=== PATIENT | female | born 1985 | race Caucasian/White ===

== ENCOUNTER 2017-05-16 18:52 | Emergency (ER) | payer OTHER ==
[2017-05-16] MEDS ORDERED: Sodium Chloride 0.9% 10 ML Syringe FLUSH PRN (19:14)
[2017-05-16] MEDS ORDERED: Ondansetron 4 MG/2 ML SDV IVPUSH ONE ×2 (19:14→19:57)
[2017-05-16] MEDS ORDERED: Sodium Chloride 0.9% 1,000 ML IV ONE (19:14)
[2017-05-16] MEDS ORDERED: HYDROmorphone 0.5 MG/0.5 ML SYRINGE IVPUSH ONE ×2 (19:24→20:08)
--- NOTE | 2017-05-16 19:37 | EDM.PDOC ---
ED HPI GENERAL MEDICAL PROBLEM - General Stated Complaint: VOMITING ABDOMINAL PAIN Time Seen by Provider: 05/16/17 19:15 Source of Information: Reports: Patient History Limitations: Reports: No Limitations - History of Present Illness INITIAL COMMENTS - FREE TEXT/NARRATIVE: Patient is a 31-year-old female presents ED complaining of vomiting and diarrhea since Saturday with diffuse abdominal pain that is worse on left hand side. Patient has been unable to keep anything down. She's had multiple episodes of diarrhea and emesis. She states in total she has 3 episodes a day of each. She has diffuse abdominal discomfort worse on the left side. Pain is described as a pressure with sharp intermittent episodes of waxing and waning. Nausea vomiting increases with food intake. She has been able to keep some liquids down. There's been no recent sick exposures. No blood in her stool or emesis. She denies any fever, sinus congestion, runny nose, sore throat, or chest pain. She's had some mild body aches. No pain with urination. She has a history of overactive bladder. She is on Ambien, sertraline, and Symbicort. Left Abdomen Pain Score (Numeric/FACES): 7 - Related Data Allergies Allergy/AdvReac Type Severity Reaction Status Date / Time No Known Allergies Allergy Verified 02/11/14 17:10 Home Meds: Home Meds Budesonide/Formoterol Fumarate [Symbicort 160-4.5 Mcg Inhaler] 1 puff IH DAILY 05/16/17 [History] Sertraline [Zoloft] 100 mg PO DAILY 05/16/17 [History] Solifenacin [Vesicare] 5 mg PO DAILY 05/16/17 [History] Zolpidem [Ambien] 10 mg PO BEDTIME PRN 05/16/17 [History] Past Medical History HEENT History: Reports: Impaired Vision Respiratory History: Reports: Asthma Psychiatric History: Reports: Anxiety - Past Surgical History Female Surgical History: Reports: Hysterectomy, Tubal Ligation, Other (See Below) Other Female Surgeries/Procedures: bladder sling Social & Family History - Tobacco Use Smoking Status *Q: Current Every Day Smoker Years of Tobacco use: 17 Packs/Tins Daily: 1 Used Tobacco, but Quit: No Second Hand Smoke Exposure: No - Caffeine Use Caffeine Use: Reports: Coffee - Alcohol Use Days Per Week of Alcohol Use: 0 Number of Drinks Per Day: 0 Total Drinks Per Week: 0 - Recreational Drug Use Recreational Drug Use: No Drug Use in Last 12 Months: No ED ROS GENERAL - Review of Systems Review Of Systems: See Below Constitutional: Reports: Chills, Malaise, Weakness, Decreased Appetite. Denies : Fever HEENT: Reports: No Symptoms Respiratory: Reports: No Symptoms Cardiovascular: Reports: No Symptoms GI/Abdominal: Reports: Abdominal Pain (Epigastric and along the umbilicus: Moderate to severe), Diarrhea (3 episodes a day no blood present), Decreased Appetite (3 episodes today with no blood present), Nausea, Vomiting : Reports: No Symptoms Musculoskeletal: Reports: Muscle Pain (Generalized) Skin: Reports: No Symptoms Neurological: Reports: Dizziness Psychiatric: Reports: No Symptoms ED EXAM, GI/ABD - Physical Exam Exam: See Below Exam Limited By: No Limitations General Appearance: Alert, WD/WN, Mild Distress Ears: Hearing Grossly Normal Nose: Normal Inspection Throat/Mouth: Normal Inspection, Normal Oropharynx, Normal Voice, No Airway Compromise Head: Atraumatic, Normocephalic Neck: Normal Inspection, Supple, Non-Tender, Full Range of Motion Respiratory/Chest: No Respiratory Distress, Lungs Clear, Normal Breath Sounds, No Accessory Muscle Use, Chest Non-Tender Cardiovascular: Normal Peripheral Pulses, Regular Rate, Rhythm, No Murmur GI/Abdominal Exam: Normal Bowel Sounds, Soft, No Organomegaly, No Distention, Tender (Lungs epigastric and periumbilical area) Back Exam: Normal Inspection. No: CVA Tenderness (L), CVA Tenderness (R) Extremities: Normal Inspection, Non-Tender, No Pedal Edema, Normal Capillary Refill Neurological: Alert, Oriented, CN II-XII Intact, Normal Cognition, No Motor/ Sensory Deficits Psychiatric: Normal Affect, Normal Mood Skin Exam: Warm, Dry, Intact, Normal Color, No Rash Course - Vital Signs Last Recorded V/S: Last Vital Signs Temp 97.3 F 05/16/17 18:58 Pulse 78 05/16/17 18:58 Resp 19 05/16/17 18:58 BP 129/67 05/16/17 18:58 Pulse Ox 100 05/16/17 18:58 - Orders/Labs/Meds Labs: Laboratory Tests 02/22/18 02/22/18 02/22/18 Range/Units 19:26 19:26 21:50 WBC 12.81 H (3.98-10.04) K/mm3 RBC 4.82 (3.98-5.22) M/mm3 Hgb 14.5 (11.2-15.7) gm/L Hct 42.4 (34.1-44.9) % MCV 88.0 (79.4-94.8) fl MCH 30.1 (25.6-32.2) pg MCHC 34.2 (32.2-35.5) g/dl RDW Std Deviation 39.3 (36.4-46.3) fL Plt Count 242 (182-369) K/mm3 MPV 9.8 (9.4-12.3) fl Neut % (Auto) 63.1 (34.0-71.1) % Lymph % (Auto) 24.7 (19.3-51.7) % [place] % (Auto) 7.0 (4.7-12.5) % Eos % (Auto) 4.1 (0.7-5.8) Baso % (Auto) 0.9 (0.1-1.2) % Neut # (Auto) 8.09 H (1.56-6.13) K/mm3 Lymph # (Auto) 3.17 (1.18-3.74) K/mm3 [place] # (Auto) 0.90 H (0.24-0.36) K/mm3 Eos # (Auto) 0.52 H (0.04-0.36) K/mm3 Baso # (Auto) 0.11 H (0.01-0.08) K/mm3 Sodium 139 (136-145) mEq/L Potassium 3.4 L (3.5-5.1) mEq/L Chloride 102 (98-107) mEq/L Carbon Dioxide 18 L (21-32) mEq/L Anion Gap 22.4 H (5-15) BUN 12 (7-18) mg/dL Creatinine 0.8 (0.55-1.02) mg/dL Est Cr Clr Drug Dosing 79.11 mL/min Estimated GFR (MDRD) > 60 (>60) mL/min BUN/Creatinine Ratio 15.0 (14-18) Glucose 107 H (74-106) mg/dL Calcium 9.5 (8.5-10.1) mg/dL Total Bilirubin 0.4 (0.2-1.0) mg/dL AST 13 L (15-37) U/L ALT 21 (14-59) U/L Alkaline Phosphatase 79 (46-116) U/L C-Reactive Protein 0.2 (<1.0) mg/dL Total Protein 7.6 (6.4-8.2) g/dl Albumin 4.0 (3.4-5.0) g/dl Globulin 3.6 gm/dL Albumin/Globulin Ratio 1.1 (1-2) Lipase 103 (73-393) U/L Urine Color Yellow (Yellow) Urine Appearance Clear (Clear) Urine pH 7.0 (5.0-8.0) Ur Specific [place] 1.015 (1.005-1.030) Urine Protein Negative (Negative) Urine Glucose (UA) Negative (Negative) Urine Ketones 1+ H (Negative) Urine Occult Blood Negative (Negative) Urine Nitrite Negative (Negative) Urine Bilirubin Negative (Negative) Urine Urobilinogen 0.2 (0.2-1.0) Ur Leukocyte Esterase Negative (Negative) Urine RBC 0-5 (0-5) /hpf Urine WBC 0-5 (0-5) /hpf Ur Epithelial Cells 0-5 (0-5) /hpf Urine Bacteria Many H (FEW) /hpf Urine Mucus Not seen (FEW) /hpf Meds: Medications Discontinued Medications Generic Name Dose Route Start Last Admin Trade Name Freq PRN Reason Stop Dose Admin Diatrizoate Meglum/Diatrizoate Sod 90 ml 05/16/17 20:40 05/16/17 21:29 Gastrografin 37% PO 05/16/17 20:41 90 ml ONETIME ONE Administration Hydromorphone HCl 0.5 mg 05/16/17 19:24 05/16/17 19:30 Dilaudid IVPUSH 05/16/17 19:25 0.5 mg ONETIME ONE Administration Hydromorphone HCl 0.5 mg 05/16/17 20:08 05/16/17 20:12 Dilaudid IVPUSH 05/16/17 20:09 0.5 mg ONETIME ONE Administration Sodium Chloride 1,000 mls @ 999 mls/hr 05/16/17 19:14 05/16/17 19:30 Normal Saline IV 05/16/17 20:14 999 mls/hr ONETIME ONE Administration Iopamidol 125 ml 05/16/17 20:40 05/16/17 21:29 Isovue-300 (61%) IVPUSH 05/16/17 20:41 125 ml ONETIME ONE Administration Metoclopramide HCl 5 mg 05/16/17 20:59 05/16/17 21:04 Reglan IVPUSH 05/16/17 21:00 5 mg ONETIME ONE Administration Ondansetron HCl 4 mg 05/16/17 19:14 05/16/17 19:30 Zofran IVPUSH 05/16/17 19:15 4 mg ONETIME ONE Administration Ondansetron HCl 4 mg 05/16/17 19:57 05/16/17 20:02 Zofran IVPUSH 05/16/17 19:58 4 mg ONETIME ONE Administration Sodium Chloride 10 ml 05/16/17 19:14 05/16/17 19:30 Saline Flush FLUSH 10 ml ASDIRECTED PRN Administration Keep Vein Open Sodium Chloride 10 ml 05/16/17 20:40 Saline Flush FLUSH 05/16/17 20:41 ONETIME ONE - Re-Assessments/Exams Free Text/Narrative Re-Assessment/Exam: IV established with Dilaudid 0.5 mg IVP, Zofran 4 mg IVP, and normal saline 999 fluid bolus. Initial labs and studies include CBC, chem 14, lipase, UA, CRP, and CT of the abdomen and pelvis with IV and oral contrast. HCG not obtain patient had a hysterectomy. Patient complaining of pain. Ordered Dilaudid 0.5 mg IVP. Patient had some additional nausea ordered 4 mg of Zofran IVP. 2100 Patient complaining of nausea ordered Reglan 5 mg IVP. Labs reviewed: CBC essentially normal. Chemistry panel revealed potassium 3.4 which is only mildly low, CO2 18, AG 22.4, albumin 12, creatinine 0.8, glucose 17, CRP is 0.2, lipase 103. CT abdomen and pelvis impression: No acute findings. UA revealed trace ketones urine bacteria many, urine RBC 0-5, urine wbc's are 5. Patient does not have a UTI. 05/16/17 22:24 Reassessment, patient sitting up in bed and sipping on water with no more emesis. She is feeling much better after receiving the above therapies. Will discharge patient home with instructions for gastroenteritis. Prescription for Zofran provided. Departure - Departure Time of Disposition: 22:24 Disposition: Home, Self-Care 01 Condition: Good Clinical Impression: Gastroenteritis - Discharge Information Instructions: Viral Gastroenteritis, Adult, [id number], Nausea and Vomiting, Adult, [id number] Referrals: PCP,None [Primary Care Provider] - Forms: ED Return to Work/School Form Additional Instructions: As discussed believe etiology of current complaint is gastroenteritis which is a viral infection. This will run its course over the next few days and should improve. treatment at this point will be symptomatic care including: Zofran 4 mg ODT every 6 hours as needed for nausea and vomiting. Sip on Pedialyte, Gatorade, or Powerade frequently throughout the day. Stick with a clear liquid diet for the next 24 hours. Advance to a bland diet thereafter. Refrain from consuming any dairy products, raw fruits/vegetables, or fruit juices. No driving this evening since receiving a sedative medication. Take Tylenol or ibuprofen in alternating fashion for discomfort. Return to the ED if you develop any new or worsening symptoms.
[2017-05-16] MEDS ORDERED: Iopamidol 612 MG/ML 150 ML Bottle IVPUSH ONE (20:40)
[2017-05-16] MEDS ORDERED: Sodium Chloride 0.9% 10 ML Syringe FLUSH ONE (20:40)
[2017-05-16] MEDS ORDERED: Diatrizoate Meglumine/Diatrizoate Sodium 37% 120 ML Bottle PO ONE (20:40)
[2017-05-16] MEDS ORDERED: Metoclopramide 10 MG/2 ML SDV IVPUSH ONE (20:59)
--- NOTE | 2017-05-17 10:48 | CT ---
CT abdomen and pelvis Technique: Multiple axial sections were obtained from above the dome of the diaphragm inferiorly through the pubic symphysis. Intravenous and oral contrast was utilized. Delayed images were obtained through the bladder. Comparison: No previous abdominal imaging. Findings: Visualized lung bases are clear. Liver shows no focal parenchymal abnormality. Spleen appears within normal limits. Adrenal glands show no nodule. Pancreas is within normal limits. Kidneys show symmetric contrast enhancement without hydronephrosis or mass. Gallbladder contains no calcified gallstones. Aorta shows no aneurysmal dilatation. No retroperitoneal adenopathy or mesenteric abnormalities are seen. No pelvic mass or adenopathy is seen. Appendix is seen which is normal. No free fluid or inflammatory change is seen. Delayed images show contrast within the ureters and within the bladder. Bone window settings were reviewed which appear within normal limits for the patient's age. Impression: 1. Nothing acute is appreciated on CT study of the abdomen and pelvis. Diagnostic code #1 Agree with preliminary report issued by [employer] (05/16/17, 10:40 PM Central Time)
== END 2017-05-16 22:46 | disposition home or self-care (01) ==
LOC: JD.ED 18:52
DX: K52.9 Noninfective gastroenteritis and colitis, unspecified (principal); F17.210 Nicotine dependence, cigarettes, uncomplicated; Z79.899 Other long term (current) drug therapy
CPT/HCPCS: 36415; 74177; 80053; 81001; 83690; 85025; 86140; 96361; 96374; 96375; 96376; 99284; J1170; J2405; J2765; J7040; J7050; Q9963; Q9967

== ENCOUNTER 2019-06-21 09:05 | Inpatient (IN) | payer OTHER ==
[2019-06-21] MEDS ORDERED: Sodium Chloride 0.9% 10 ML Syringe FLUSH PRN (09:10)
[2019-06-21] MEDS ORDERED: Sodium Chloride 0.9% 1,000 ML IV SCH ×2 (09:15→11:30)
--- NOTE | 2019-06-21 09:25 | EDM.PDOC ---
ED HPI GENERAL MEDICAL PROBLEM - General Chief Complaint: Drug or Alcohol Abuse Stated Complaint: [facility] Time Seen by Provider: 06/21/19 09:08 Source of Information: Reports: Patient, EMS, RN Notes Reviewed - History of Present Illness INITIAL COMMENTS - FREE TEXT/NARRATIVE: 33 year old female has been brought in by EMS for altered mental status. Has been drinking alcohol, called 911 about 30 minutes ARMORED [employer] stating she has also taken around 20 22.5 mg temazepam. Hx of depression. Was awake, aware, upon EMS arrival, able to answer simple questions. More drowsy upon arrival to ED. No known other ingestion. Bottle of temazepam brought in by EMS, it is empty. - Related Data Allergies Allergy/AdvReac Type Severity Reaction Status Date / Time No Known Allergies Allergy Verified 02/11/14 17:10 Home Meds: Home Meds Budesonide/Formoterol Fumarate [Symbicort 160-4.5 Mcg Inhaler] 1 puff IH DAILY 05/16/17 [History] Sertraline [Zoloft] 100 mg PO DAILY 05/16/17 [History] Solifenacin [Vesicare] 5 mg PO DAILY 05/16/17 [History] Zolpidem [Ambien] 10 mg PO BEDTIME PRN 05/16/17 [History] Past Medical History HEENT History: Reports: Impaired Vision Respiratory History: Reports: Asthma Psychiatric History: Reports: Anxiety - Past Surgical History Female Surgical History: Reports: Hysterectomy, Tubal Ligation, Other (See Below) Other Female Surgeries/Procedures: bladder sling Social & Family History - Caffeine Use Caffeine Use: Reports: Coffee ED ROS GENERAL - Review of Systems Review Of Systems: Unable To Obtain Reason Not Obtained: altered mental status - Physical Exam Exam: See Below General Appearance: Other (very drowsy on ED arrival, opens eyes to verbal, mumbles incoherently when asked questions) Eye Exam: Bilateral Eye: PERRL Throat/Mouth: Normal Inspection Head Exam: Atraumatic Neck: Supple Respiratory/Chest: No Respiratory Distress, Lungs Clear, Normal Breath Sounds. No: Rhonchi, Wheezing Cardiovascular: Tachycardia GI/Abdominal: Non-Tender Neuro Exam (Abbreviated): Other (very drowsy on arrival to ED, does open eyes to voice, mumbles incoherently to questions, did squeeze fingers for me shortly after arrival. ) Course - Vital Signs Last Recorded V/S: Last Vital Signs Temp 96.4 F L 06/21/19 09:07 Pulse 103 H 06/21/19 09:07 Resp 18 06/21/19 09:07 BP 105/78 06/21/19 09:07 Pulse Ox 91 L 06/21/19 09:07 - Orders/Labs/Meds Orders: Active Orders 24 hr Category Date Time Status EKG 12 Lead [EKG Documentation Completion] [RC] STAT Care 06/21/19 09:35 Active Peripheral IV Care [RC] . DIRECTED Care 06/21/19 09:10 Active BLOOD GAS ARTERIAL [BG] Stat Lab 06/21/19 09:35 Ordered Sodium Chloride 0.9% [Normal Saline] 1,000 ml Med 06/21/19 09:15 Active IV ONETIME Sodium Chloride 0.9% [Saline Flush] Med 06/21/19 09:10 Active 10 ml FLUSH ASDIRECTED PRN Peripheral IV Insertion Adult [OM.PC] Stat Oth 06/21/19 09:10 Ordered Medication Orders Sodium Chloride (Normal Saline) 1,000 mls @ 999 mls/hr IV ONETIME [place] Sodium Chloride (Saline Flush) 10 ml FLUSH ASDIRECTED PRN PRN Reason: Keep Vein Open Labs: Laboratory Tests 06/21/19 06/21/19 06/21/19 Range/Units 09:17 09:17 09:17 WBC 7.49 (3.98-10.04) K/mm3 RBC 4.97 (3.98-5.22) M/mm3 Hgb 15.5 (11.2-15.7) gm/dl Hct 47.1 H (34.1-44.9) % MCV 94.8 D (79.4-94.8) fl MCH 31.2 (25.6-32.2) pg MCHC 32.9 (32.2-35.5) g/dl RDW Std Deviation 42.4 (36.4-46.3) fL Plt Count 262 (182-369) K/mm3 MPV 9.4 (9.4-12.3) fl Neut % (Auto) 57.3 (34.0-71.1) % Lymph % (Auto) 31.5 (19.3-51.7) % [place] % (Auto) 5.6 (4.7-12.5) % Eos % (Auto) 4.3 (0.7-5.8) Baso % (Auto) 0.9 (0.1-1.2) % Neut # (Auto) 4.29 (1.56-6.13) K/mm3 Lymph # (Auto) 2.36 (1.18-3.74) K/mm3 [place] # (Auto) 0.42 H (0.24-0.36) K/mm3 Eos # (Auto) 0.32 (0.04-0.36) K/mm3 Baso # (Auto) 0.07 (0.01-0.08) K/mm3 Sodium 149 H D (136-145) mEq/L Potassium 3.9 (3.5-5.1) mEq/L Chloride 109 H (98-107) mEq/L Carbon Dioxide 27 (21-32) mEq/L Anion Gap 16.9 H (5-15) BUN 9 (7-18) mg/dL Creatinine 0.8 (0.55-1.02) mg/dL Est Cr Clr Drug Dosing TNP Estimated GFR (MDRD) > 60 (>60) mL/min BUN/Creatinine Ratio 11.3 L (14-18) Glucose 93 (74-106) mg/dL Calcium 9.3 (8.5-10.1) mg/dL Total Bilirubin 0.2 (0.2-1.0) mg/dL AST 17 (15-37) U/L ALT 31 (14-59) U/L Alkaline Phosphatase 80 (46-116) U/L Total Protein 8.1 (6.4-8.2) g/dl Albumin 4.1 (3.4-5.0) g/dl Globulin 4.0 gm/dL Albumin/Globulin Ratio 1.0 (1-2) Salicylates 1.7 L (2.8-20) mg/dL Urine Opiates Screen (DXMLQN=546) Ur Buprenorphine Scrn (CUTOFF=10) Ur Oxycodone Screen (CIH2XY=134) Urine Methadone Screen (LNKEGA=283) Ur Propoxyphene Screen (LYSLCW=205) Acetaminophen 0 L (10-30) ug/mL Ur Barbiturates Screen (IOPOGF=950) Ur Tricyclics Screen (VKHBPH=416) Ur Phencyclidine Scrn (CUTOFF=25) Ur Amphetamine Screen (QGLQNW=486) U Methamphetamines Scrn (EHVUNZ=394) U Benzodiazepines Scrn (LBXECB=857) U Cocaine Metab Screen (MEWHED=106) U Marijuana (THC) Screen (CUTOFF=50) Ethyl Alcohol 0.27 (0.00) gm% 06/21/19 Range/Units 09:19 WBC (3.98-10.04) K/mm3 RBC (3.98-5.22) M/mm3 Hgb (11.2-15.7) gm/dl Hct (34.1-44.9) % MCV (79.4-94.8) fl MCH (25.6-32.2) pg MCHC (32.2-35.5) g/dl RDW Std Deviation (36.4-46.3) fL Plt Count (182-369) K/mm3 MPV (9.4-12.3) fl Neut % (Auto) (34.0-71.1) % Lymph % (Auto) (19.3-51.7) % [place] % (Auto) (4.7-12.5) % Eos % (Auto) (0.7-5.8) Baso % (Auto) (0.1-1.2) % Neut # (Auto) (1.56-6.13) K/mm3 Lymph # (Auto) (1.18-3.74) K/mm3 [place] # (Auto) (0.24-0.36) K/mm3 Eos # (Auto) (0.04-0.36) K/mm3 Baso # (Auto) (0.01-0.08) K/mm3 Sodium (136-145) mEq/L Potassium (3.5-5.1) mEq/L Chloride (98-107) mEq/L Carbon Dioxide (21-32) mEq/L Anion Gap (5-15) BUN (7-18) mg/dL Creatinine (0.55-1.02) mg/dL Est Cr Clr Drug Dosing Estimated GFR (MDRD) (>60) mL/min BUN/Creatinine Ratio (14-18) Glucose (74-106) mg/dL Calcium (8.5-10.1) mg/dL Total Bilirubin (0.2-1.0) mg/dL AST (15-37) U/L ALT (14-59) U/L Alkaline Phosphatase (46-116) U/L Total Protein (6.4-8.2) g/dl Albumin (3.4-5.0) g/dl Globulin gm/dL Albumin/Globulin Ratio (1-2) Salicylates (2.8-20) mg/dL Urine Opiates Screen Negative (QXTNTW=953) Ur Buprenorphine Scrn Negative (CUTOFF=10) Ur Oxycodone Screen Negative (PVK7BP=165) Urine Methadone Screen Negative (TMVFKH=366) Ur Propoxyphene Screen Negative (AOFBNI=691) Acetaminophen (10-30) ug/mL Ur Barbiturates Screen Negative (GUAVRA=300) Ur Tricyclics Screen Negative (GFOAWY=767) Ur Phencyclidine Scrn Negative (CUTOFF=25) Ur Amphetamine Screen Negative (OAZJNU=778) U Methamphetamines Scrn Negative (JQNBKD=058) U Benzodiazepines Scrn Presumptive positive H (SQXTLI=557) U Cocaine Metab Screen Negative (SIMKPW=450) U Marijuana (THC) Screen Negative (CUTOFF=50) Ethyl Alcohol (0.00) gm% Meds: Medications Generic Name Dose Route Start Last Admin Trade Name Freq PRN Reason Stop Dose Admin Sodium Chloride 1,000 mls @ 999 mls/hr 06/21/19 09:15 Normal Saline IV ONETIME [place] Sodium Chloride 10 ml 06/21/19 09:10 Saline Flush FLUSH ASDIRECTED PRN Keep Vein Open Discontinued Medications Generic Name Dose Route Start Last Admin Trade Name Freq PRN Reason Stop Dose Admin Flumazenil Confirm 06/21/19 09:45 Romazicon Administered 06/21/19 09:46 Dose 0.5 mg .ROUTE .STK-MED ONE Naloxone HCl Confirm 06/21/19 09:42 Narcan Administered 06/21/19 09:43 Dose 2 mg .ROUTE .STK-MED ONE - Re-Assessments/Exams Free Text/Narrative Re-Assessment/Exam: 06/21/19 10:07 Patient became more even more drowsy over the next 15 to 20 minutes from arrival to ED to where she was no longer opening eyes to voice or responding in any way to verbal or sternal rub. Started having some snoring respirations, dropped her sats in to the 80's and than back to the 90's. She was mouth breathing so went to mask high flow and than to nonrebreathing. KB Smith was called with concern for need for intubation to protect airway and oxygenation. With jaw lift and nasal airway sats did improveWe did give 2 mg narcan, that did nothing, and than did some low dose repetitive romazicon and with that she started waking up to moving about, told Brinkley her birthday. At this point she is doing much better, will transfer her over to ICU for further careful monitering and treatment. ETOH 0.27, drug screen positive for benzo's. Other labs all relatively nl. Departure - Departure Time of Disposition: 10:35 Disposition: Admitted As Inpatient 64 Condition: Serious Clinical Impression: Hypoxia Alcohol intoxication Qualifiers: Complication of substance-induced condition: uncomplicated Qualified Code(s): F10.920 - Alcohol use, unspecified with intoxication, uncomplicated Drug overdose, intentional Qualifiers: Encounter type: initial encounter Qualified Code(s): T50.902A - Poisoning by unspecified drugs, medicaments and biological substances, intentional self-harm , initial encounter - Discharge Information Sepsis Event Note - Evaluation Sepsis Screening Result: No Definite Risk - Focused Exam Vital Signs: Vital Signs Temp Pulse Resp BP Pulse Ox 06/21/19 09:07 96.4 F L 103 H 18 105/78 91 L Date Exam was Performed: 06/21/19 Time Exam was Performed: 10:34 ED Communication - Discussed Case With (1) Discussed Case With (1): Admitting Provider (Dr Jones, decision to admit at about 10:10.) - My Orders Last 24 Hours: My Active Orders 06/21/19 09:10 Peripheral IV Care [RC] . DIRECTED Sodium Chloride 0.9% [Saline Flush] 10 ml FLUSH ASDIRECTED PRN Peripheral IV Insertion Adult [OM.PC] Stat 06/21/19 09:15 Sodium Chloride 0.9% [Normal Saline] 1,000 ml IV ONETIME 06/21/19 09:35 EKG 12 Lead [EKG Documentation Completion] [RC] STAT BLOOD GAS ARTERIAL [BG] Stat - Assessment/Plan Last 24 Hours: My Active Orders 06/21/19 09:10 Peripheral IV Care [RC] . DIRECTED Sodium Chloride 0.9% [Saline Flush] 10 ml FLUSH ASDIRECTED PRN Peripheral IV Insertion Adult [OM.PC] Stat 06/21/19 09:15 Sodium Chloride 0.9% [Normal Saline] 1,000 ml IV ONETIME 06/21/19 09:35 EKG 12 Lead [EKG Documentation Completion] [RC] STAT BLOOD GAS ARTERIAL [BG] Stat
[2019-06-21] MEDS ORDERED: Naloxone 2 MG/2 ML Syringe ONE (09:42)
[2019-06-21] MEDS ORDERED: Flumazenil 0.1 MG/ML 5 ML MDV ONE (09:45)
[2019-06-21 09:55] LABS: ACETAMINOPHEN 0 ug/mL (10-30)
[2019-06-21] MEDS ORDERED: Sodium Chloride 0.9% 1,000 ML ONE (10:45)
--- NOTE | 2019-06-21 11:07 | PCM.HP.2 ---
H&P History of Present Illness - General Date of Service: 06/21/19 Admit Problem/Dx: Admission Diagnosis/Problem Admission Diagnosis/Problem intentinal drug overdose/ altered mental status Source of Information: EMS, Provider, RN Notes Reviewed History Limitations: Reports: Altered Mental Status, Intoxication, Physical Impairment, Respiratory Distress, Uncooperative - History of Present Illness Initial Comments - Free Text/Narative: 33 admitted with temamazipam overdose and obtundations. etoh also high .27. p.e. tachicardia and stable b.p. arousable but severe apnea and oral airway in . sats 88-92 %. verbally responsive to questions a nd moves all extremities .answers slurred but understands commands . lungs clear . cor rrr abd benign skin tatoos. neuro obtunded and slurred speech . now more obtunded and assessing co2 but sats stable. heart rate 120-140 asses overdose temezepam /alcohol. resp insuff with apnea and obtundation. plan supportive care if co2 retnetion trial of high flow or intubate. currently on 15 liters nrb mask airway protection . repeat reversal agent if increasing obtundation currently on 15 liters nrb . Onset of Symptoms: Reports: Today Symptom Onset Date: 06/21/19 Symptom Onset Time: 08:00 Duration of Symptoms: Reports: Hour(s): (4) Severity: Severe Improves with: Reports: None Worsens with: Reports: None Associated Symptoms: Reports: Confusion, Other - Related Data Allergies/Adverse Reactions: Allergies Allergy/AdvReac Type Severity Reaction Status Date / Time No Known Allergies Allergy Verified 02/11/14 17:10 Home Medications: Home Meds RX: Budesonide/Formoterol Fumarate [Symbicort 160-4.5 Mcg Inhaler] 1 puff IH DAILY 05/16/17 [History] RX: Sertraline [Zoloft] 100 mg PO DAILY 05/16/17 [History] RX: Solifenacin [Vesicare] 5 mg PO DAILY 05/16/17 [History] RX: Zolpidem [Ambien] 10 mg PO BEDTIME PRN 05/16/17 [History] Past Medical History HEENT History: Reports: Impaired Vision Respiratory History: Reports: Asthma Psychiatric History: Reports: Anxiety, Depression, Mood Swings - Past Surgical History Female Surgical History: Reports: Hysterectomy, Tubal Ligation, Other (See Below) Other Female Surgeries/Procedures: bladder sling Social & Family History - Caffeine Use Caffeine Use: Reports: Coffee H&P Review of Systems - Review of Systems: Review Of Systems: See Below General: Reports: No Symptoms Psychiatric: Reports: Confusion, Suicidal Ideation Exam - Exam Exam: See Below - Vital Signs Vital Signs: Last Vital Signs Temp 35.8 C L 06/21/19 09:07 Pulse 103 H 06/21/19 09:07 Resp 18 06/21/19 09:07 BP 105/78 06/21/19 09:07 Pulse Ox 91 L 06/21/19 09:07 Weight: 81.647 kg - Exam Quality Assessment: Supplemental Oxygen General: Cooperative, Lethargic, Obtunded. No: Alert, Oriented HEENT: PERRLA (apneic spells lasting 10 seconds without airway positioned on side ), Hearing Intact, Mucosa Moist & [place], Nares Patent, Normal Nasal Septum, Posterior Pharynx Clear, Conjunctiva Clear, EOMI, EACs Clear, TMs Clear Neck: Supple, Trachea Midline, 2 Lungs: Clear to Auscultation, Normal Respiratory Effort Cardiovascular: Regular Rate, Regular Rhythm GI/Abdominal Exam: Normal Bowel Sounds, Soft, Non-Tender, No Organomegaly, No Distention, No Abnormal Bruit, No Mass, Pelvis Stable (Female) Exam: Normal External Exam, Normal Speculum Exam, Normal Bimanual Exam Rectal (Female) Exam: Normal Exam, Normal Rectal Tone Back Exam: Normal Inspection, Full Range of Motion, NT Extremities: Normal Inspection, Normal Range of Motion, Non-Tender, No Pedal Edema, Normal Capillary Refill Skin: Warm, Dry, Intact Neurological: Cranial Nerves Intact, Reflexes Equal Bilateral Neuro Extensive - Mental Status: Alert, Oriented x3, Normal Mood/Affect, Normal Cognition Neuro Extensive - Motor, Sensory, Reflexes: CN II-XII Intact, Normal Gait, Normal Reflexes Psychiatric: Alert, Normal Affect, Normal Mood, Other (obtunded responds to questions and commands and touch .snoring and apneic spells ) - Patient Data Lab Results Last 24 hrs: Laboratory Results - last 24 hr 06/21/19 06/21/19 06/21/19 Range/Units 09:17 09:17 09:17 WBC 7.49 (3.98-10.04) K/mm3 RBC 4.97 (3.98-5.22) M/mm3 Hgb 15.5 (11.2-15.7) gm/dl Hct 47.1 H (34.1-44.9) % MCV 94.8 D (79.4-94.8) fl MCH 31.2 (25.6-32.2) pg MCHC 32.9 (32.2-35.5) g/dl RDW Std Deviation 42.4 (36.4-46.3) fL Plt Count 262 (182-369) K/mm3 MPV 9.4 (9.4-12.3) fl Neut % (Auto) 57.3 (34.0-71.1) % Lymph % (Auto) 31.5 (19.3-51.7) % [place] % (Auto) 5.6 (4.7-12.5) % Eos % (Auto) 4.3 (0.7-5.8) Baso % (Auto) 0.9 (0.1-1.2) % Neut # (Auto) 4.29 (1.56-6.13) K/mm3 Lymph # (Auto) 2.36 (1.18-3.74) K/mm3 [place] # (Auto) 0.42 H (0.24-0.36) K/mm3 Eos # (Auto) 0.32 (0.04-0.36) K/mm3 Baso # (Auto) 0.07 (0.01-0.08) K/mm3 Sodium 149 H D (136-145) mEq/L Potassium 3.9 (3.5-5.1) mEq/L Chloride 109 H (98-107) mEq/L Carbon Dioxide 27 (21-32) mEq/L Anion Gap 16.9 H (5-15) BUN 9 (7-18) mg/dL Creatinine 0.8 (0.55-1.02) mg/dL Est Cr Clr Drug Dosing TNP Estimated GFR (MDRD) > 60 (>60) mL/min BUN/Creatinine Ratio 11.3 L (14-18) Glucose 93 (74-106) mg/dL Calcium 9.3 (8.5-10.1) mg/dL Total Bilirubin 0.2 (0.2-1.0) mg/dL AST 17 (15-37) U/L ALT 31 (14-59) U/L Alkaline Phosphatase 80 (46-116) U/L Total Protein 8.1 (6.4-8.2) g/dl Albumin 4.1 (3.4-5.0) g/dl Globulin 4.0 gm/dL Albumin/Globulin Ratio 1.0 (1-2) Salicylates 1.7 L (2.8-20) mg/dL Urine Opiates Screen (YONKJG=403) Ur Buprenorphine Scrn (CUTOFF=10) Ur Oxycodone Screen (VOX0SB=826) Urine Methadone Screen (RZNDMV=273) Ur Propoxyphene Screen (WERNGL=666) Acetaminophen 0 L (10-30) ug/mL Ur Barbiturates Screen (KYERVQ=821) Ur Tricyclics Screen (SUIMIM=272) Ur Phencyclidine Scrn (CUTOFF=25) Ur Amphetamine Screen (JUVHBN=072) U Methamphetamines Scrn (KIJPFA=871) U Benzodiazepines Scrn (UMCVUK=557) U Cocaine Metab Screen (QUPIXT=963) U Marijuana (THC) Screen (CUTOFF=50) Ethyl Alcohol 0.27 (0.00) gm% 06/21/19 Range/Units 09:19 WBC (3.98-10.04) K/mm3 RBC (3.98-5.22) M/mm3 Hgb (11.2-15.7) gm/dl Hct (34.1-44.9) % MCV (79.4-94.8) fl MCH (25.6-32.2) pg MCHC (32.2-35.5) g/dl RDW Std Deviation (36.4-46.3) fL Plt Count (182-369) K/mm3 MPV (9.4-12.3) fl Neut % (Auto) (34.0-71.1) % Lymph % (Auto) (19.3-51.7) % [place] % (Auto) (4.7-12.5) % Eos % (Auto) (0.7-5.8) Baso % (Auto) (0.1-1.2) % Neut # (Auto) (1.56-6.13) K/mm3 Lymph # (Auto) (1.18-3.74) K/mm3 [place] # (Auto) (0.24-0.36) K/mm3 Eos # (Auto) (0.04-0.36) K/mm3 Baso # (Auto) (0.01-0.08) K/mm3 Sodium (136-145) mEq/L Potassium (3.5-5.1) mEq/L Chloride (98-107) mEq/L Carbon Dioxide (21-32) mEq/L Anion Gap (5-15) BUN (7-18) mg/dL Creatinine (0.55-1.02) mg/dL Est Cr Clr Drug Dosing Estimated GFR (MDRD) (>60) mL/min BUN/Creatinine Ratio (14-18) Glucose (74-106) mg/dL Calcium (8.5-10.1) mg/dL Total Bilirubin (0.2-1.0) mg/dL AST (15-37) U/L ALT (14-59) U/L Alkaline Phosphatase (46-116) U/L Total Protein (6.4-8.2) g/dl Albumin (3.4-5.0) g/dl Globulin gm/dL Albumin/Globulin Ratio (1-2) Salicylates (2.8-20) mg/dL Urine Opiates Screen Negative (RKQYJR=726) Ur Buprenorphine Scrn Negative (CUTOFF=10) Ur Oxycodone Screen Negative (EPV2CG=423) Urine Methadone Screen Negative (FAMVGY=266) Ur Propoxyphene Screen Negative (SXMWKA=758) Acetaminophen (10-30) ug/mL Ur Barbiturates Screen Negative (URZEWD=828) Ur Tricyclics Screen Negative (KRJXGI=477) Ur Phencyclidine Scrn Negative (CUTOFF=25) Ur Amphetamine Screen Negative (YTRQUC=534) U Methamphetamines Scrn Negative (NKCDZX=126) U Benzodiazepines Scrn Presumptive positive H (ULEHUG=358) U Cocaine Metab Screen Negative (UWHVPG=816) U Marijuana (THC) Screen Negative (CUTOFF=50) Ethyl Alcohol (0.00) gm% Result Diagrams: 06/21/19 09:17 06/21/19 09:17 Sepsis Event Note - Evaluation Sepsis Screening Result: No Definite Risk - Focused Exam Vital Signs: Vital Signs Temp Pulse Resp BP Pulse Ox 06/21/19 09:07 35.8 C L 103 H 18 105/78 91 L Date Exam was Performed: 06/21/19 Time Exam was Performed: 12:18 - Problem List (1) Alcohol intoxication SNOMED Code(s): 72849178 ICD Code: F10.929 - ALCOHOL USE, UNSPECIFIED WITH INTOXICATION, UNSPECIFIED Status: Acute Priority: High Current Visit: Yes Onset Date: 06/21/19 Qualifiers: Complication of substance-induced condition: uncomplicated Qualified Code(s ): F10.920 - Alcohol use, unspecified with intoxication, uncomplicated (2) Drug overdose, intentional SNOMED Code(s): 57338852 ICD Code: T50.902A - POISONING BY UNSP DRUG/MEDS/BIOL SUBST, SELF-HARM, INIT Status: Acute Priority: Medium Current Visit: Yes Onset Date: 06/21/19 Qualifiers: Encounter type: initial encounter Qualified Code(s): T50.902A - Poisoning by unspecified drugs, medicaments and biological substances, intentional self- harm, initial encounter (3) Hypoxia SNOMED Code(s): 666874765 ICD Code: R09.02 - HYPOXEMIA Status: Acute Priority: High Current Visit : Yes Onset Date: 06/21/19 Problem List Initiated/Reviewed/Updated: Yes Orders Last 24hrs: Active Orders 24 hr Category Date Time Status Patient Status [ADT] Routine ADT 06/21/19 10:09 Active EKG 12 Lead [EKG Documentation Completion] [RC] STAT Care 06/21/19 09:35 Active Peripheral IV Care [RC] . DIRECTED Care 06/21/19 09:10 Active BLOOD GAS ARTERIAL [BG] Stat Lab 06/21/19 09:35 Ordered Sodium Chloride 0.9% [Normal Saline] 1,000 ml Med 06/21/19 09:15 Active IV ONETIME Sodium Chloride 0.9% [Saline Flush] Med 06/21/19 09:10 Active 10 ml FLUSH ASDIRECTED PRN Peripheral IV Insertion Adult [OM.PC] Stat Oth 06/21/19 09:10 Ordered Medication Orders Sodium Chloride (Normal Saline) 1,000 mls @ 999 mls/hr IV ONETIME [place] Sodium Chloride (Saline Flush) 10 ml FLUSH ASDIRECTED PRN PRN Reason: Keep Vein Open - Mortality Measure Prognosis:: Good
[2019-06-21] MEDS ORDERED: Labetalol 100 MG/20 ML MDV IVPUSH ONE (12:18)
[2019-06-21] MEDS ORDERED: Flumazenil 0.1 MG/ML 5 ML MDV IVPUSH ONE ×2 (12:46→13:00)
--- NOTE | 2019-06-21 13:47 | CR ---
Chest: Portable view of the chest was obtained. Comparison: No prior chest imaging. Heart size and mediastinum are within normal limits for portable technique. Increased lung markings and slight parenchymal changes scattered throughout both lungs. Difficult to exclude pulmonary vascular congestion. Atelectasis is also noted within both lungs. Nasogastric tube is seen with tip lying within the stomach. Bony structures are grossly intact. Impression: 1. Increased lung markings as well as scattered parenchymal change. Difficult to exclude pulmonary vascular congestion. 2. Atelectasis scattered within both lungs. 3. Satisfactory position of nasogastric tube. Diagnostic code #3 This report was dictated in MDT
[2019-06-21] MEDS: Dextrose 5%-Lactated Ringers 1,000 ML IV SCH ×2 (13:58→22:08)
[2019-06-21] MEDS ORDERED: LORazepam 1 MG Tab PO PRN (20:15)
[2019-06-21] MEDS ORDERED: Thiamine 200 MG/2 ML MDV ONE (20:22)
[2019-06-21] MEDS: LORazepam 2 MG/ML SDV IVPUSH PRN ×2 (20:31→22:39)
[2019-06-21] MEDS: Thiamine 200 MG/2 ML MDV IVPUSH SCH (20:55)
[2019-06-21] MEDS ORDERED: Thiamine 100 MG in Sodium Chloride 0.9% 100 ML IV SCH (21:00)
[2019-06-22] MEDS: LORazepam 2 MG/ML SDV IVPUSH PRN ×2 (02:38→05:15)
[2019-06-22] MEDS: Dextrose 5%-Lactated Ringers 1,000 ML IV SCH (05:18)
[2019-06-22] MEDS ORDERED: Magnesium Sulfate/Water 2 GM in Premix Bag 1 BAG IV ONE (08:55)
[2019-06-22] MEDS: Potassium Chloride 10 MEQ in Premix Bag 1 BAG IV SCH ×4 (09:31→13:02)
[2019-06-22] MEDS: Thiamine 200 MG/2 ML MDV IVPUSH SCH (09:31)
[2019-06-22] MEDS: Pantoprazole 40 MG Vial IVPUSH SCH (09:31)
[2019-06-22] MEDS: Ondansetron 4 MG/2 ML SDV IVPUSH PRN (09:31)
[2019-06-22] MEDS: chlordiazePOXIDE 25 MG Cap PO SCH ×2 (11:32→20:57)
[2019-06-22] MEDS: Sertraline 50 MG Tab PO SCH (11:32)
[2019-06-22] MEDS ORDERED: Acetaminophen 325 MG Tab PO PRN (15:52)
[2019-06-22] MEDS: Nicotine 21 MG/24 Hr Patch TRDERM SCH (18:08)
--- NOTE | 2019-06-22 20:18 | PCM.PN ---
- General Info Date of Service: 06/22/19 Admission Dx/Problem (Free Text): Admission Diagnosis/Problem Admission Diagnosis/Problem intentinal drug overdose/ altered mental status Subjective Update: 06/22/19 afebrile vss n/g weaned and removed. o2 decreased to room air p.e. easily discuss recent events but hx vague. states drinking every other day and no prev. suicide attempts . denies widthdrawl no complaints of pain . little appetite yet. sleepy but haldol dced . on librium/ thiamine and mtv. restating antidepressant. to med surg. and increase activity psyche to see regarding depression a nd suicide attempt. p.e wnl lab pending. assess drug overdose/ now wearing off. etoh abuse extent not fully known but to be further discussed . widthdrawl seems mild and resolving . depression with insomnia with suicidal intentional overdose ,followed by calling of 911. plan psyche and drug abuse eval. supportive care / dc in am if stable on floor and all parties agree. boh - Review of Systems General: Reports: No Symptoms HEENT: Reports: No Symptoms Pulmonary: Reports: No Symptoms Cardiovascular: Reports: No Symptoms Gastrointestinal: Reports: No Symptoms Genitourinary: Reports: No Symptoms Musculoskeletal: Reports: No Symptoms Skin: Reports: No Symptoms Neurological: Reports: No Symptoms Psychiatric: Reports: No Symptoms - Patient Data Vitals - Most Recent: Last Vital Signs Temp 36.7 C 06/22/19 15:36 Pulse 89 06/22/19 15:36 Resp 16 06/22/19 15:36 BP 108/58 L 06/22/19 15:36 Pulse Ox 94 L 06/22/19 15:36 Weight - Most Recent: 61.689 kg I&O - Last 24 Hours: Intake & Output 06/22/19 06/22/19 06/22/19 06:59 14:59 22:59 Intake Total 900 907 Output Total 635 230 Balance 265 -230 907 Lab Results Last 24 Hours: Laboratory Results - last 24 hr 06/22/19 06/22/19 Range/Units 04:10 04:10 WBC 10.26 H (3.98-10.04) K/mm3 RBC 4.20 (3.98-5.22) M/mm3 Hgb 13.2 D (11.2-15.7) gm/dl Hct 41.0 (34.1-44.9) % MCV 97.6 H (79.4-94.8) fl MCH 31.4 (25.6-32.2) pg MCHC 32.2 (32.2-35.5) g/dl RDW Std Deviation 43.4 (36.4-46.3) fL Plt Count 208 (182-369) K/mm3 MPV 9.3 L (9.4-12.3) fl Neut % (Auto) 66.8 (34.0-71.1) % Lymph % (Auto) 24.3 (19.3-51.7) % [place] % (Auto) 7.3 (4.7-12.5) % Eos % (Auto) 1.0 (0.7-5.8) Baso % (Auto) 0.4 (0.1-1.2) % Neut # (Auto) 6.86 H (1.56-6.13) K/mm3 Lymph # (Auto) 2.49 (1.18-3.74) K/mm3 [place] # (Auto) 0.75 H (0.24-0.36) K/mm3 Eos # (Auto) 0.10 (0.04-0.36) K/mm3 Baso # (Auto) 0.04 (0.01-0.08) K/mm3 Sodium 146 H (136-145) mEq/L Potassium 3.4 L (3.5-5.1) mEq/L Chloride 109 H (98-107) mEq/L Carbon Dioxide 26 (21-32) mEq/L Anion Gap 14.4 (5-15) BUN 8 (7-18) mg/dL Creatinine 0.8 (0.55-1.02) mg/dL Est Cr Clr Drug Dosing 77.63 mL/min Estimated GFR (MDRD) > 60 (>60) mL/min BUN/Creatinine Ratio 10.0 L (14-18) Glucose 99 (74-106) mg/dL Calcium 8.2 L (8.5-10.1) mg/dL Magnesium 1.4 L (1.8-2.4) mg/dl Total Bilirubin 0.5 (0.2-1.0) mg/dL AST 15 (15-37) U/L ALT 22 (14-59) U/L Alkaline Phosphatase 73 (46-116) U/L Total Protein 6.6 (6.4-8.2) g/dl Albumin 3.2 L (3.4-5.0) g/dl Globulin 3.4 gm/dL Albumin/Globulin Ratio 0.9 L (1-2) Med Orders - Current: Current Medications Acetaminophen (Tylenol) 650 mg PO Q4H PRN PRN Reason: Pain (mild 1-3) Last Admin: 06/22/19 16:02 Dose: 650 mg Chlordiazepoxide HCl (Librium) 25 mg PO BID [facility] Last Admin: 06/22/19 11:32 Dose: 25 mg Dextrose/Lactated Ringer's (Dextrose 5%-Lactated Ringers) 1,000 mls @ 75 mls/ hr IV ASDIRECTED [facility] Last Infusion: 06/22/19 09:32 Dose: 75 mls/hr Lorazepam (Ativan) 0 mg IVPUSH Q1H PRN; Protocol PRN Reason: Withdrawal Symptoms Last Admin: 06/22/19 05:15 Dose: 1 mg Lorazepam (Ativan) 1 - 2 mg PO Q1H PRN; Protocol PRN Reason: Withdrawal Symptoms Miscellaneous Information (Remove Patch) 1 ea TRDERM DAILY [facility] Nicotine (Habitrol) 21 mg TRDERM DAILY [facility] Last Admin: 06/22/19 18:08 Dose: 21 mg Ondansetron HCl (Zofran) 4 mg IVPUSH Q6H PRN PRN Reason: Nausea Last Admin: 06/22/19 09:31 Dose: 4 mg Pantoprazole Sodium (Protonix Iv) 40 mg IVPUSH DAILY [facility] Last Admin: 06/22/19 09:31 Dose: 40 mg Sertraline HCl (Zoloft) 100 mg PO DAILY [facility] Last Admin: 06/22/19 11:32 Dose: 100 mg Sodium Chloride (Saline Flush) 10 ml FLUSH ASDIRECTED PRN PRN Reason: Keep Vein Open Thiamine HCl (Vitamin B-1) 100 mg PO ONETIME ONE Stop: 06/23/19 09:01 Discontinued Medications Flumazenil (Romazicon) Confirm Administered Dose 0.5 mg .ROUTE .STK-MED ONE Stop: 06/21/19 09:46 Last Admin: 06/21/19 19:02 Dose: Not Given Flumazenil (Romazicon) 2.5 mg IVPUSH ONETIME ONE Stop: 06/21/19 12:47 Last Admin: 06/21/19 13:01 Dose: Not Given Flumazenil (Romazicon) 0.1 mg IVPUSH ONETIME ONE Stop: 06/21/19 13:01 Last Admin: 06/21/19 13:14 Dose: 0.1 mg Sodium Chloride (Normal Saline) 1,000 mls @ 999 mls/hr IV ONETIME [place] Sodium Chloride (Normal Saline) Confirm Administered Dose 1,000 mls @ as directed .ROUTE .STK-MED ONE Stop: 06/21/19 10:46 Last Admin: 06/21/19 11:25 Dose: Not Given Sodium Chloride (Normal Saline) 1,000 mls @ 250 mls/hr IV ASDIRECTED [facility] Last Admin: 06/21/19 10:49 Dose: 250 mls/hr Thiamine HCl 100 mg/ Sodium (Chloride) 101 mls @ 202 mls/hr IV DAILY [facility] Stop: 06/23/19 09:00 Magnesium Sulfate 2 gm/ Premix 50 mls @ 25 mls/hr IV ONETIME ONE Stop: 06/22/19 10:54 Last Admin: 06/22/19 09:31 Dose: 25 mls/hr Potassium Chloride 10 meq/ (Premix) 100 mls @ 100 mls/hr IV ASDIRECTED [facility] Stop: 06/25/19 09:59 Last Admin: 06/22/19 13:02 Dose: 100 mls/hr Labetalol HCl (Normodyne) 5 mg IVPUSH ONETIME ONE; Protocol Stop: 06/21/19 12:19 Last Admin: 06/21/19 12:27 Dose: 5 mg Naloxone HCl (Narcan) Confirm Administered Dose 2 mg .ROUTE .STK-MED ONE Stop: 06/21/19 09:43 Last Admin: 06/21/19 19:02 Dose: Not Given Thiamine HCl (Vitamin B-1) 100 mg IVPUSH DAILY [facility] Stop: 06/23/19 09:00 Last Admin: 06/22/19 09:31 Dose: 100 mg Thiamine HCl (Vitamin B-1) Confirm Administered Dose 200 mg .ROUTE .STK-MED ONE Stop: 06/21/19 20:23 Last Admin: 06/21/19 20:49 Dose: Not Given Thiamine HCl (Vitamin B-1) 100 mg PO BEDTIME [place] Stop: 06/23/19 09:30 - Exam General: Alert, Oriented HEENT: Pupils Equal, Pupils Reactive, EOMI, Mucous Membr. Moist/[place] Neck: Supple Lungs: Clear to Auscultation, Normal Respiratory Effort Cardiovascular: Regular Rate, Regular Rhythm GI/Abdominal Exam: Normal Bowel Sounds, Soft, Non-Tender, No Organomegaly, No Distention, No Abnormal Bruit, No Mass, Pelvis Stable (Female) Exam: Normal External Exam, Normal Speculum Exam, Normal Bimanual Exam Back Exam: Normal Inspection, Full Range of Motion Extremities: Normal Inspection, Normal Range of Motion, Non-Tender, No Pedal Edema, Normal Capillary Refill Skin: Warm, Dry, Intact Wound/Incisions: Healing Well Neurological: No New Focal Deficit Psy/Mental Status: Alert, Normal Affect, Normal Mood Sepsis Event Note - Evaluation Sepsis Screening Result: No Definite Risk - Focused Exam Vital Signs: Vital Signs Temp Temp Pulse Resp BP BP Pulse Ox 06/22/19 15:36 36.7 C 89 16 108/58 L 94 L 06/22/19 12:00 36.6 C 16 94/64 97 06/22/19 09:10 Pulse Ox 06/22/19 15:36 06/22/19 12:00 06/22/19 09:10 98 Date Exam was Performed: 06/22/19 Time Exam was Performed: 20:10 - Problem List & Annotations (1) Alcohol intoxication SNOMED Code(s): 71018839 Code(s): F10.929 - ALCOHOL USE, UNSPECIFIED WITH INTOXICATION, UNSPECIFIED Status: Acute Priority: High Current Visit: Yes Onset Date: 06/21/19 Qualifiers: Complication of substance-induced condition: with delirium Qualified Code(s ): F10.921 - Alcohol use, unspecified with intoxication delirium (2) Drug overdose, intentional SNOMED Code(s): 77422172 Code(s): T50.902A - POISONING BY UNSP DRUG/MEDS/BIOL SUBST, SELF-HARM, INIT Status: Acute Priority: High Current Visit: Yes Onset Date: 06/21/19 Qualifiers: Encounter type: initial encounter Qualified Code(s): T50.902A - Poisoning by unspecified drugs, medicaments and biological substances, intentional self- harm, initial encounter (3) Hypoxia SNOMED Code(s): 569051108 Code(s): R09.02 - HYPOXEMIA Status: Acute Priority: High Current Visit : Yes Onset Date: 06/21/19 - Problem List Review Problem List Initiated/Reviewed/Updated: Yes - My Orders Last 24 Hours: My Active Orders 06/21/19 20:04 LORazepam [Ativan] See Protocol IVPUSH Q1H PRN 06/21/19 20:15 LORazepam [Ativan] 1 - 2 mg PO Q1H PRN 06/22/19 06:42 Ondansetron [Zofran] 4 mg IVPUSH Q6H PRN 06/22/19 09:00 Pantoprazole [ProTONIX IV] 40 mg IVPUSH DAILY 06/22/19 10:00 Nasogastric Orogastric Tube Removal [OM.PC] Routine 06/22/19 11:15 Sertraline [Zoloft] 100 mg PO DAILY chlordiazePOXIDE [Librium] 25 mg PO BID 06/22/19 12:40 Patient Status [ADT] Routine 06/22/19 15:52 Acetaminophen [Tylenol] 650 mg PO Q4H PRN 06/22/19 18:00 Nicotine [Habitrol] 21 mg TRDERM DAILY 06/22/19 Lunch Regular Diet [DIET] 06/23/19 09:00 Remove Patch 1 ea TRDERM DAILY Thiamine [Vitamin B-1] 100 mg PO ONETIME ONE - Plan Plan:: 06/22/19 afebrile vss n/g weaned and removed. o2 decreased to room air p.e. easily discuss recent events but hx vague. states drinking every other day and no prev. suicide attempts . denies widthdrawl no complaints of pain . little appetite yet. sleepy but haldol dced . on librium/ thiamine and mtv. restating antidepressant. to med surg. and increase activity psyche to see regarding depression a nd suicide attempt. p.e wnl lab pending. assess drug overdose/ now wearing off. etoh abuse extent not fully known but to be further discussed . widthdrawl seems mild and resolving . depression with insomnia with suicidal intentional overdose ,followed by calling of 911. plan psyche and drug abuse eval. supportive care / dc in am if stable on floor and all parties agree. boh
[2019-06-23] MEDS: Dextrose 5%-Lactated Ringers 1,000 ML IV SCH (01:37)
[2019-06-23] MEDS: Ondansetron 4 MG/2 ML SDV IVPUSH PRN (04:40)
[2019-06-23] MEDS ORDERED: Remove Patch*NICOTINE TRDERM SCH (09:00)
[2019-06-23] MEDS ORDERED: Thiamine 100 MG Tab PO ONE (09:00)
[2019-06-23] MEDS ORDERED: Multivitamins,Therapeutic Tab PO SCH (09:00)
[2019-06-23] MEDS ORDERED: Thiamine 100 MG Tab PO SCH (09:00)
[2019-06-23] MEDS: Nicotine 21 MG/24 Hr Patch TRDERM SCH (09:49)
[2019-06-23] MEDS: chlordiazePOXIDE 25 MG Cap PO SCH (09:50)
[2019-06-23] MEDS: Sertraline 50 MG Tab PO SCH (09:50)
[2019-06-23] MEDS: Pantoprazole 40 MG Vial IVPUSH SCH (09:51)
[2019-06-23] MEDS ORDERED: Topiramate 25 MG Tab PO ONE (11:00)
[2019-06-23] MEDS ORDERED: QUEtiapine 25 MG Tab PO ONE (11:00)
--- NOTE | 2019-06-23 11:58 | PCM.DCSUM1 ---
Discharge Summary - Hospital Course Free Text/Narrative:: n/g weaned and removed. o2 decreased to room air p.e. easily discuss recent events but hx vague. states drinking every other day and no prev. suicide attempts . denies widthdrawl no complaints of pain . little appetite yet. sleepy but haldol dced . on librium/ thiamine and mtv. restating antidepressant. to med surg. and increase activity psyche to see regarding depression a nd suicide attempt. p.e wnl lab pending. assess drug overdose/ now wearing off. etoh abuse extent not fully known but to be further discussed . widthdrawl seems mild and resolving . depression with insomnia with suicidal intentional overdose ,followed by calling of 911. meds switched and sertraline and buspar dced and quientipine and topimax started an to be continued as o.p plan psyche and drug abuse eval.completed , supportive care and follow up addressed / HPI Initial Comments: stable for dc Brief History: recommended to see pyche in follow up as directed. cont toprimax and dc sertraline and buspar. cont quintipine at hs. - Discharge Data Discharge Date: 06/23/19 Discharge Disposition: Home, Self-Care 01 Condition: Good - Referral to Home Health Date of Face to Face Encounter: 06/23/19 Primary Care Physician: PCP None Skilled Need: none - Discharge Diagnosis/Problem(s) (1) Alcohol intoxication SNOMED Code(s): 72376716 ICD Code: F10.929 - ALCOHOL USE, UNSPECIFIED WITH INTOXICATION, UNSPECIFIED Status: Acute Priority: High Current Visit: Yes Onset Date: 06/21/19 Problem Details: has seen Dr Poe and no hx of alcoholism but flucuating use. no widthdrawl seen although ciwas elavated after admission. stable last 24 hours and walking and eating well . starting quintipine and topimax and stopping sertraline and buspar and temazepam . Qualifiers: Complication of substance-induced condition: with delirium Qualified Code(s ): F10.921 - Alcohol use, unspecified with intoxication delirium (2) Drug overdose, intentional SNOMED Code(s): 45884621 ICD Code: T50.902A - POISONING BY UNSP DRUG/MEDS/BIOL SUBST, SELF-HARM, INIT Status: Acute Priority: High Current Visit: Yes Onset Date: 06/21/19 Problem Details: doing well and new meds per Dr Poe and states emotionally stable andnot a threat to repeat or do harm to herself. feels tired but normal . Qualifiers: Encounter type: subsequent encounter Qualified Code(s): T50.902D - Poisoning by unspecified drugs, medicaments and biological substances, intentional self-harm, subsequent encounter (3) Hypoxia SNOMED Code(s): 791277917 ICD Code: R09.02 - HYPOXEMIA Status: Acute Priority: High Current Visit : Yes Onset Date: 06/21/19 (4) Nausea & vomiting SNOMED Code(s): 44264853 ICD Code: R11.2 - NAUSEA WITH VOMITING, UNSPECIFIED Status: Acute Current Visit: Yes Onset Date: 06/21/19 Problem Details: resolved / n/g out x 36 hours and eating well Qualifiers: Vomiting type: bilious vomiting Qualified Code(s): R11.14 - Bilious vomiting - Patient Summary/Data Consults: Consultations 06/21/19 12:46 Consult to Physician [CONS] Routine 06/21/19 12:47 Consult to Case Management/Rehab Director [CONS] Routine Hospital Course: n/g weaned and removed. o2 decreased to room air p.e. easily discuss recent events but hx vague. states drinking every other day and no prev. suicide attempts . denies widthdrawl no complaints of pain . little appetite yet. sleepy but haldol dced . on librium/ thiamine and mtv. restating antidepressant. to med surg. and increase activity psyche to see regarding depression a nd suicide attempt. p.e wnl lab pending. assess drug overdose/ now wearing off. etoh abuse extent not fully known but to be further discussed . widthdrawl seems mild and resolving . depression with insomnia with suicidal intentional overdose ,followed by calling of 911. meds switched and sertraline and buspar dced and quientipine and topimax started an to be continued as o.p plan psyche and drug abuse eval. supportive care / - Patient Instructions Diet, Other: regular/ screen for prediabetes recommended Activity: As Tolerated Activity, Other: regular exercise and work Driving: May Drive Today - Discharge Plan *PRESCRIPTION DRUG MONITORING PROGRAM REVIEWED*: Yes *COPY OF PRESCRIPTION DRUG MONITORING REPORT IN PATIENT JESUS: No Prescriptions/Med Rec: Nicotine [Habitrol] 21 mg TRDERM DAILY #20 patch QUEtiapine [SEROquel] 50 mg PO BEDTIME #14 tablet Home Medications: Home Meds Budesonide/Formoterol Fumarate [Symbicort 160-4.5 Mcg Inhaler] 2 puff IH BID [History] Sertraline [Zoloft] 100 mg PO DAILY 05/16/17 [History] Solifenacin [Vesicare] 10 mg PO DAILY 05/16/17 [History] Nicotine [Habitrol] 21 mg TRDERM DAILY #20 patch 06/23/19 [Rx] QUEtiapine [SEROquel] 50 mg PO BEDTIME #14 tablet 06/23/19 [Rx] Oxygen Therapy Mode: Room Air Patient Handouts: Steps to Quit Smoking Referrals: PCP,None [Primary Care Provider] - - Discharge Summary/Plan Comment DC Time >30 min.: Yes - General Info Date of Service: 06/23/19 Admission Dx/Problem (Free Text: Admission Diagnosis/Problem Admission Diagnosis/Problem intentinal drug overdose/ altered mental status Subjective Update: 06/22/19 afebrile vss n/g weaned and removed. o2 decreased to room air p.e. easily discuss recent events but hx vague. states drinking every other day and no prev. suicide attempts . denies widthdrawl no complaints of pain . little appetite yet. sleepy but haldol dced . on librium/ thiamine and mtv. restating antidepressant. to med surg. and increase activity psyche to see regarding depression a nd suicide attempt. p.e wnl lab pending. assess drug overdose/ now wearing off. etoh abuse extent not fully known but to be further discussed . widthdrawl seems mild and resolving . depression with insomnia with suicidal intentional overdose ,followed by calling of 911. plan psyche and drug abuse eval. supportive care / dc in am if stable on floor and all parties agree. boh 06/23/19 afebrile vss sats decreased and resp rattly . unable to place n.g tube despite attempts x 4 . lethargic but turns head to name and sounds . lungs minimal ronchii cor: rrr soft murmur. abd b.s active and non tender. ms. chest lesion not draining. neuro still lethargic but moving all extremities and more purposeful. lab urine culture pending loaded u.a and started rocephin this am. t.p low. na 155 k 3.2. chloride 113 bun 32. creat .9 chest xray pending . - Review of Systems General: Reports: No Symptoms HEENT: Reports: No Symptoms Pulmonary: Reports: No Symptoms Cardiovascular: Reports: No Symptoms Gastrointestinal: Reports: No Symptoms Genitourinary: Reports: No Symptoms Musculoskeletal: Reports: No Symptoms Skin: Reports: No Symptoms Neurological: Reports: No Symptoms Psychiatric: Reports: No Symptoms - Patient Data Vitals - Most Recent: Last Vital Signs Temp 36.8 C 06/23/19 08:51 Pulse 91 06/23/19 08:51 Resp 16 06/23/19 08:51 BP 125/81 06/23/19 08:51 Pulse Ox 93 L 06/23/19 09:00 Weight - Most Recent: 101.469 kg I&O - Last 24 hours: Intake & Output 06/22/19 06/23/19 06/23/19 22:59 06:59 14:59 Intake Total 907 1655 Output Total 1200 Balance 907 455 Med Orders - Current: Current Medications Acetaminophen (Tylenol) 650 mg PO Q4H PRN PRN Reason: Pain (mild 1-3) Last Admin: 06/22/19 16:02 Dose: 650 mg Chlordiazepoxide HCl (Librium) 25 mg PO BID [facility] Last Admin: 06/23/19 09:50 Dose: 25 mg Dextrose/Lactated Ringer's (Dextrose 5%-Lactated Ringers) 1,000 mls @ 75 mls/ hr IV ASDIRECTED [facility] Last Admin: 06/23/19 01:37 Dose: 75 mls/hr Lorazepam (Ativan) 0 mg IVPUSH Q1H PRN; Protocol PRN Reason: Withdrawal Symptoms Last Admin: 06/22/19 05:15 Dose: 1 mg Lorazepam (Ativan) 1 - 2 mg PO Q1H PRN; Protocol PRN Reason: Withdrawal Symptoms Miscellaneous Information (Remove Patch) 1 ea TRDERM DAILY [facility] Last Admin: 06/23/19 09:51 Dose: 1 ea Multivitamins (Thera) 1 each PO DAILY [facility] Last Admin: 06/23/19 09:49 Dose: 1 each Nicotine (Habitrol) 21 mg TRDERM DAILY [facility] Last Admin: 06/23/19 09:49 Dose: 21 mg Ondansetron HCl (Zofran) 4 mg IVPUSH Q6H PRN PRN Reason: Nausea Last Admin: 06/23/19 04:40 Dose: 4 mg Pantoprazole Sodium (Protonix Iv) 40 mg IVPUSH DAILY [facility] Last Admin: 06/23/19 09:51 Dose: 40 mg Quetiapine Fumarate (Seroquel) 50 mg PO BEDTIME [facility] Sodium Chloride (Saline Flush) 10 ml FLUSH ASDIRECTED PRN PRN Reason: Keep Vein Open Topiramate (Topamax) 50 mg PO DAILY [facility] Discontinued Medications Flumazenil (Romazicon) Confirm Administered Dose 0.5 mg .ROUTE .STK-MED ONE Stop: 06/21/19 09:46 Last Admin: 06/21/19 19:02 Dose: Not Given Flumazenil (Romazicon) 2.5 mg IVPUSH ONETIME ONE Stop: 06/21/19 12:47 Last Admin: 06/21/19 13:01 Dose: Not Given Flumazenil (Romazicon) 0.1 mg IVPUSH ONETIME ONE Stop: 06/21/19 13:01 Last Admin: 06/21/19 13:14 Dose: 0.1 mg Sodium Chloride (Normal Saline) 1,000 mls @ 999 mls/hr IV ONETIME [facility] Sodium Chloride (Normal Saline) Confirm Administered Dose 1,000 mls @ as directed .ROUTE .STK-MED ONE Stop: 06/21/19 10:46 Last Admin: 06/21/19 11:25 Dose: Not Given Sodium Chloride (Normal Saline) 1,000 mls @ 250 mls/hr IV ASDIRECTED [facility] Last Admin: 06/21/19 10:49 Dose: 250 mls/hr Thiamine HCl 100 mg/ Sodium (Chloride) 101 mls @ 202 mls/hr IV DAILY [facility] Stop: 06/23/19 09:00 Magnesium Sulfate 2 gm/ Premix 50 mls @ 25 mls/hr IV ONETIME ONE Stop: 06/22/19 10:54 Last Admin: 06/22/19 09:31 Dose: 25 mls/hr Potassium Chloride 10 meq/ (Premix) 100 mls @ 100 mls/hr IV ASDIRECTED [facility] Stop: 06/25/19 09:59 Last Admin: 06/22/19 13:02 Dose: 100 mls/hr Labetalol HCl (Normodyne) 5 mg IVPUSH ONETIME ONE; Protocol Stop: 06/21/19 12:19 Last Admin: 06/21/19 12:27 Dose: 5 mg Naloxone HCl (Narcan) Confirm Administered Dose 2 mg .ROUTE .STK-MED ONE Stop: 06/21/19 09:43 Last Admin: 06/21/19 19:02 Dose: Not Given Quetiapine Fumarate (Seroquel) 25 mg PO ONETIME ONE Stop: 06/23/19 11:01 Last Admin: 06/23/19 11:25 Dose: 25 mg Sertraline HCl (Zoloft) 100 mg PO DAILY [facility] Last Admin: 06/23/19 09:50 Dose: 100 mg Thiamine HCl (Vitamin B-1) 100 mg IVPUSH DAILY [facility] Stop: 06/23/19 09:00 Last Admin: 06/22/19 09:31 Dose: 100 mg Thiamine HCl (Vitamin B-1) Confirm Administered Dose 200 mg .ROUTE .STK-MED ONE Stop: 06/21/19 20:23 Last Admin: 06/21/19 20:49 Dose: Not Given Thiamine HCl (Vitamin B-1) 100 mg PO BEDTIME [facility] Stop: 06/23/19 09:30 Thiamine HCl (Vitamin B-1) 100 mg PO ONETIME ONE Stop: 06/23/19 09:01 Last Admin: 06/23/19 09:50 Dose: 100 mg Topiramate (Topamax) 50 mg PO ONETIME ONE Stop: 06/23/19 11:01 Last Admin: 06/23/19 11:25 Dose: 50 mg
[2019-06-23] MEDS ORDERED: FLU Vacc QS2019-20(6MOS+)/PF 60 MCG/0.5 ML SYRINGE IM ONE (13:15)
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
[2019-06-23] MEDS ORDERED: QUEtiapine 25 MG Tab PO SCH (21:00)
[2019-06-24] MEDS ORDERED: Topiramate 25 MG Tab PO SCH (09:00)
== END 2019-06-23 15:25 | disposition home or self-care (01) | DRG 918 ==
LOC: JD.ED 09:05 → JD.ICU 10:09 → JD.MS 06-22 13:15
PROVIDERS: ADMIT Pediatrics; ATTEND Pediatrics
DX: T42.4X2A Poisoning by benzodiazepines, intentional self-harm, initial encounter (principal); F10.121 Alcohol abuse with intoxication delirium; F31.60 Bipolar disorder, current episode mixed, unspecified; G47.00 Insomnia, unspecified; R09.02 Hypoxemia; R11.14 Bilious vomiting; Y90.8 Blood alcohol level of 240 mg/100 ml or more; J45.909 Unspecified asthma, uncomplicated; F43.10 Post-traumatic stress disorder, unspecified; F41.9 Anxiety disorder, unspecified; H54.7 Unspecified visual loss; Z88.8 Allergy status to other drugs, medicaments and biological substances; Z79.899 Other long term (current) drug therapy; Z91.012 Allergy to eggs; Z90.710 Acquired absence of both cervix and uterus; Z98.51 Tubal ligation status; Z23 Encounter for immunization
CPT/HCPCS: 36415; 36600; 51702; 80053; 80306; 80307; 82803; 83735; 84703; 85025; 90686; 93005; 99285-25; A9270-GY; C9113; G0008; J2060; J2310; J2405; J3411; J3475; J3480; J3490; J7030; J7121; Q3014

== ENCOUNTER → 2023-01-09 | Day surgery (SDC) | payer BC ==
[~2023-01-09] MED LIST: Acetaminophen 325 MG Tab PO SCH; Albuterol 0.083% 2.5 MG/3 ML Neb Soln NEB SCH; Dexmedetomidine 200 MCG/2 ML SDV ONE; EPINEPHrine 1 MG/ML SDV ONE; HYDROmorphone 0.5 MG/0.5 ML Syringe IVPUSH PRN; Ketorolac 30 MG/ML SDV ONE; Lactated Ringers 1,000 ML IV SCH; Lactated Ringers 1,000 ML ONE; Lidocaine 1% 4 ML ONE; Midazolam 1 MG/ML 2 ML SDV ONE; Morphine 8 MG, EPINEPHrine 0.3 MG, Cefuroxime 750 MG, Ketorolac 30 MG, Sodium Chloride ... PRN; Ondansetron 4 MG/2 ML SDV IVPUSH PRN; Ondansetron 4 MG/2 ML SDV ONE; Phenylephrine 1% 10 MG/ML SDV ONE; Pregabalin 25 MG Cap PO SCH; Propofol 200 MG/20 ML SDV ONE; Ropivacaine 0.5% 5 MG/ML 30 ML SDV ONE; Sodium Chloride 0.9% 10 ML Syringe FLUSH PRN; Sodium Chloride 0.9% 10 ML Syringe FLUSH SCH; Tranexamic Acid 1,000 MG/10 ML Vial ONE; Vancomycin 1 GM SDV ONE; ceFAZolin 2 GM Vial ONE; fentaNYL 100 MCG/2 ML SDV IVPUSH PRN; fentaNYL 100 MCG/2 ML SDV ONE; oxyCODONE 5 MG Tab PO PRN; oxyCODONE ER 10 MG TAB.ER PO SCH
== END | disposition home or self-care (01) ==
LOC: JD.SDS 06:40
PROVIDERS: ATTEND Orthopaedic Surgery
DX: M17.11 Unilateral primary osteoarthritis, right knee (principal); F41.9 Anxiety disorder, unspecified; J45.909 Unspecified asthma, uncomplicated; K21.9 Gastro-esophageal reflux disease without esophagitis; G47.00 Insomnia, unspecified; F32.A Depression, unspecified; G89.29 Other chronic pain; M54.9 Dorsalgia, unspecified; Z88.8 Allergy status to other drugs, medicaments and biological substances; Z91.012 Allergy to eggs; Z79.51 Long term (current) use of inhaled steroids; Z79.899 Other long term (current) drug therapy; Z87.891 Personal history of nicotine dependence
CPT/HCPCS: 0055T; 27447; 64447; 73560; 97161; A9270; C1713; C1776; J0171; J0690; J0697; J1885; J2250; J2270; J2371; J2405; J2704; J2795; J3010; J3370; J7030; J7120; 01402; J3490; J7620-GY